=== PATIENT | female | born 1990 | race Two or more races ===

== ENCOUNTER 2018-04-18 20:55 | Emergency (ER) | payer MEDICAID ==
[~2018-04-18] VITALS: Ht 152.4 cm; Wt 68.5 kg
[2018-04-18 21:04] VITALS: BP 127/77
== END 2018-04-18 21:50 | disposition home or self-care (01) ==
LOC: ED 21:43
DX: H65.02 Acute serous otitis media, left ear (principal); J01.90 Acute sinusitis, unspecified
CPT/HCPCS: 99283

== ENCOUNTER 2018-05-01 16:22 | Emergency (ER) | payer MEDICAID ==
[~2018-05-01] VITALS: Ht 152.4 cm; Wt 67.0 kg
[2018-05-01 16:33] VITALS: BP 103/68
[2018-05-01] MEDS ORDERED: CYCLOBENZAPRINE 10 MG TABLET PO STA (16:55)
[2018-05-01] MEDS ORDERED: IBUPROFEN 200 MG TABLET PO ONE (17:00)
[2018-05-01] MEDS ORDERED: CYCLOBENZAPRINE 10 MG TABLET ONE (17:13)
[2018-05-01] MEDS ORDERED: IBUPROFEN 200 MG TABLET ONE (17:13)
== END 2018-05-01 18:17 | disposition home or self-care (01) ==
LOC: ED 18:11
DX: S39.012A Strain of muscle, fascia and tendon of lower back, initial encounter (principal); X58.XXXA Exposure to other specified factors, initial encounter; Y93.89 Activity, other specified; Y92.89 Other specified places as the place of occurrence of the external cause; Y99.8 Other external cause status
CPT/HCPCS: 72110; 99283

== ENCOUNTER 2018-12-19 03:50 | Emergency (ER) | payer MEDICAID ==
[~2018-12-19] VITALS: Ht 152.4 cm; Wt 70.0 kg
[2018-12-19 03:54] VITALS: BP 133/79
== END 2018-12-19 05:42 | disposition home or self-care (01) ==
LOC: ED 05:15
DX: S39.012A Strain of muscle, fascia and tendon of lower back, initial encounter (principal); X58.XXXA Exposure to other specified factors, initial encounter; Y93.89 Activity, other specified; Y92.89 Other specified places as the place of occurrence of the external cause; Y99.8 Other external cause status
CPT/HCPCS: 36415; 80053; 81001; 81025; 84703; 85025; 87086; 99283

== ENCOUNTER 2019-05-10 21:31 | Emergency (ER) | payer MEDICAID ==
[~2019-05-10] VITALS: Ht 152.4 cm; Wt 70.0 kg
[~2019-05-10 21:31] MED LIST: CYCL-259 PO; GABA600T7 PO; NAPR-856 PO
[2019-05-11 00:03] LABS: BASOPHILS # (AUTO) 0.04 x10^3/uL (0-0.1); BASOPHILS % (AUTO) 0 % (0-1); EOSINOPHILS # (AUTO) 0.18 x10^3/uL (0-0.4); EOSINOPHILS % (AUTO) 1 % (1-7); LYMPHOCYTES # (AUTO) 4.29 x10^3/uL (1-3.4); LYMPHOCYTES % (AUTO) 33 % (22-44); MD NO; MEAN CORPUSCULAR HEMOGLOBIN 26.6 pg (27.0-34.8); MEAN CORPUSCULAR VOLUME 80.8 fL (80-100); MEAN PLATELET VOLUME 8.9 fL (7.4-10.4); MONOCYTES # (AUTO) 0.75 x10^3/uL (0.2-0.8); MONOCYTES % (AUTO) 6 % (2-9); NEUTROPHILS # (AUTO) 7.69 x10^3/uL (1.8-6.8); NEUTROPHILS % (AUTO) 59 % (42-75); PLATELET COUNT 367 x10^3/uL (130-400); RED BLOOD COUNT 4.93 x10^6/uL (3.82-5.3); RED CELL DISTRIBUTION WIDTH 15.3 % (9.6-15.2)
[2019-05-11 00:12] LABS: ALBUMIN 3.1 g/dL (3.4-5.0); ANION GAP 6 mmol/L (5-15); CALCIUM 8.9 mg/dL (8.5-10.1); CHLORIDE 111 mmol/L (98-107)
[2019-05-11 00:18] LABS: ALANINE AMINOTRANSFERASE 16 U/L (12-78); ALKALINE PHOSPHATASE 91 U/L (45-117); BILIRUBIN,TOTAL 0.2 mg/dL (0.2-1.0); CREATININE 0.61 mg/dL (0.55-1.02); TOTAL PROTEIN 7.6 g/dL (6.4-8.2); TROPONIN I < 0.015 ng/mL (0.000-0.045)
--- NOTE | 2019-05-11 02:42 | NUR ---
pt called to room from lobby
[2019-05-11] MEDS ORDERED: ACETAMINOPHEN 500 MG TABLET PO ONE (03:00)
[2019-05-11] MEDS ORDERED: IBUPROFEN 600 MG TABLET PO ONE (03:00)
[2019-05-11] MEDS ORDERED: IBUPROFEN 600 MG TABLET ONE (03:12)
[2019-05-11] MEDS ORDERED: ACETAMINOPHEN 500 MG TABLET ONE ×2 (03:12)
[2019-05-11 03:14] VITALS: BP 104/66
== END 2019-05-11 03:42 | disposition home or self-care (01) ==
LOC: ED 05-11 03:39
DX: R07.89 Other chest pain (principal)
CPT/HCPCS: 36415; 71046; 80053; 84484; 85025; 85379; 93005; 99284

== ENCOUNTER 2020-09-15 11:06 | Emergency (ER) | payer MEDICAID ==
[~2020-09-15] VITALS: Ht 152.4 cm; Wt 63.0 kg
[~2020-09-15 11:06] MED LIST changes: -CYCL-259 PO; +CYCL10TA2 PO
--- NOTE | 2020-09-15 11:26 | NUR ---
PT AMBULATED TO ROOM FROM TRIAGE. PT STATED THAT SHE "DRANK TOO MUCH LAST NIGHT" AND WOKE UP THIS MORNING THROWING UP. PT HAS MILD TREMORS IN HANDS. PT DENIES ANY BLOOD IN VOMIT, ABDOMINAL PAIN, DIARRHEA OR FEVER.
[2020-09-15] MEDS ORDERED: SODIUM CHLORIDE 0.9% 1,000ML IVBOLUS ONE (11:30)
[2020-09-15] MEDS ORDERED: LORazepam 2 MG/ML, 1ML IV ONE (11:30)
[2020-09-15] MEDS ORDERED: FAMOTIDINE 20 MG/2 ML IVPush ONE (11:30)
[2020-09-15] MEDS ORDERED: ONDANSETRON 2MG/ML, 2ML IVPush ONE (11:30)
[2020-09-15] MEDS ORDERED: SODIUM CHLORIDE FLUSH 10ML SYR IVF ONE (11:30)
[2020-09-15] MEDS ORDERED: MAALOX/HYOSCYAMINE/LIDOCAINE 45 ML BTL PO ONE (11:30)
[2020-09-15] MEDS ORDERED: MAALOX/HYOSCYAMINE/LIDOCAINE 45 ML BTL ONE (11:38)
[2020-09-15] MEDS ORDERED: ONDANSETRON 2MG/ML, 2ML ONE (11:38)
[2020-09-15] MEDS ORDERED: FAMOTIDINE 20 MG/2 ML ONE (11:38)
[2020-09-15] MEDS ORDERED: LORazepam 2 MG/ML, 1ML ONE (11:38)
[2020-09-15 11:40] LABS: BASOPHILS % (AUTO) 1 % (0-1); EOSINOPHILS % (AUTO) 0 % (1-7); LYMPHOCYTES % (AUTO) 19 % (22-44); MEAN CORPUSCULAR HEMOGLOBIN 27.6 pg (27.0-34.8); MEAN CORPUSCULAR HGB CONC 33.2 g/dL (32.4-35.8); MEAN PLATELET VOLUME 8.6 fL (7.4-10.4); MONOCYTES % (AUTO) 4 % (2-9); NEUTROPHILS % (AUTO) 77 % (42-75); PLATELET COUNT 341 x10^3/uL (130-400); RED BLOOD COUNT 5.43 x10^6/uL (3.82-5.3); RED CELL DISTRIBUTION WIDTH 13.9 % (9.6-15.2)
[2020-09-15 11:42] LABS: MD NO
[2020-09-15 11:53] LABS: ALBUMIN 4.1 g/dL (3.4-5.0); ANION GAP 11 mmol/L (5-15); CALCIUM 8.8 mg/dL (8.5-10.1); CHLORIDE 109 mmol/L (98-107)
[2020-09-15 11:59] LABS: ALANINE AMINOTRANSFERASE 32 U/L (12-78); ALKALINE PHOSPHATASE 112 U/L (45-117); BILIRUBIN,TOTAL 0.2 mg/dL (0.2-1.0); CREATININE 0.76 mg/dL (0.55-1.02); TOTAL PROTEIN 8.5 g/dL (6.4-8.2)
[2020-09-15 12:34] VITALS: BP 112/69
== END 2020-09-15 12:38 | disposition home or self-care (01) ==
LOC: ED 12:21
DX: K29.20 Alcoholic gastritis without bleeding (principal)
CPT/HCPCS: 36415; 80053; 83690; 84703; 85025; 96361; 96374; 96375; 99284; J2060; J2405; J7030

== ENCOUNTER 2021-01-05 19:49 | Emergency (ER) | payer MEDICAID ==
[~2021-01-05] VITALS: Ht 152.4 cm; Wt 64.5 kg
--- NOTE | 2021-01-05 20:03 | NUR ---
PT HERE FOR C/O N/V/D, +CHILLS AND SORE THROAT. SEEN AT TODAY TESTED FOR COVID AND STREP. TAKING ABX.
[2021-01-05 20:33] LABS: BASOPHILS % (AUTO) 1 % (0-1); EOSINOPHILS % (AUTO) 1 % (1-7); LYMPHOCYTES % (AUTO) 22 % (22-44); MEAN PLATELET VOLUME 8.4 fL (7.4-10.4); MONOCYTES % (AUTO) 4 % (2-9); NEUTROPHILS % (AUTO) 73 % (42-75); PLATELET COUNT 324 x10^3/uL (130-400); RED BLOOD COUNT 5.23 x10^6/uL (3.82-5.3); RED CELL DISTRIBUTION WIDTH 14.4 % (9.6-15.2)
[2021-01-05 20:39] LABS: ALANINE AMINOTRANSFERASE 35 U/L (12-78); ALBUMIN 3.6 g/dL (3.4-5.0); ANION GAP 9 mmol/L (5-15); CALCIUM 9.1 mg/dL (8.5-10.1); CHLORIDE 107 mmol/L (98-107); CREATININE 0.65 mg/dL (0.55-1.02)
[2021-01-05 20:43] LABS: ALKALINE PHOSPHATASE 109 U/L (45-117); BILIRUBIN,TOTAL 0.5 mg/dL (0.2-1.0); TOTAL PROTEIN 8.2 g/dL (6.4-8.2)
[2021-01-05] MEDS ORDERED: MAALOX/HYOSCYAMINE/LIDOCAINE 45 ML BTL PO ONE (21:00)
[2021-01-05] MEDS ORDERED: DICYCLOMINE 10 MG CAPSULE PO ONE (21:00)
[2021-01-05] MEDS ORDERED: MAALOX/HYOSCYAMINE/LIDOCAINE 45 ML BTL ONE (21:20)
[2021-01-05] MEDS ORDERED: DICYCLOMINE 20 MG TABLET ONE (21:21)
[2021-01-05 21:34] LABS: MICROSCOPIC AUTO
[2021-01-05 22:26] LABS: MICROSCOPIC AUTO
[2021-01-05 22:39] VITALS: BP 117/78
== END 2021-01-05 23:08 | disposition home or self-care (01) ==
LOC: ED 20:48
DX: J02.8 Acute pharyngitis due to other specified organisms (principal); B34.9 Viral infection, unspecified; R10.13 Epigastric pain; Z20.822 Contact with and (suspected) exposure to COVID-19; R11.2 Nausea with vomiting, unspecified; R19.7 Diarrhea, unspecified
CPT/HCPCS: 36415; 71045; 80053; 81001; 83690; 84703; 85025; 87086; 87106; 99284